=== PATIENT | male | born 1980 | race Caucasian/White ===

== ENCOUNTER 2017-08-22 09:37 | Emergency (ER) | payer SELFPAY ==
[~2017-08-22] VITALS: Ht 182.9 cm; Wt 59.9 kg
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
--- NOTE | 2017-08-22 10:48 | NUR ---
DR BACON AT BEDSIDE FOR EVAL
[2017-08-22 11:23] LABS: BASOPHILS # (AUTO) 0.1 /CMM (0.0-0.2); BASOPHILS % (AUTO) 0.9 % (0.0-2.0); EOSINOPHILS # (AUTO) 0.1 /CMM (0.0-0.7); EOSINOPHILS % (AUTO) 0.5 % (0.0-6.0); HEMATOCRIT 44 % (39-51); HEMOGLOBIN 14.6 g/dL (13.5-17.5); LYMPHOCYTES # (AUTO) 3.3 /CMM (0.8-4.8); LYMPHOCYTES % (AUTO) 28.3 % (20.0-44.0); MEAN CORPUSCULAR HEMOGLOBIN 31 PG (26.0-33.0); MEAN CORPUSCULAR HGB CONC 34 g/dl (31.0-36.0); MEAN CORPUSCULAR VOLUME 91 fL (80-96); MONOCYTES # (AUTO) 0.9 /CMM (0.1-1.30); MONOCYTES % (AUTO) 7.7 % (2.0-12.0); NEUTROPHILS # (AUTO) 7.2 /CMM (1.8-8.9); NEUTROPHILS % (AUTO) 62.6 % (43.0-81.0); PLATELET COUNT (AUTO) 263 /CMM (150-450); RDW COEFFICIENT OF VARIATION 12.6 (11.5-15.0); WHITE BLOOD COUNT (AUTO) 11.6 K/uL (4.3-11.0)
[2017-08-22 11:33] LABS: CALCIUM, SERUM 8.5 mg/dL (8.5-10.1); CARBON DIOXIDE 29 mmol/L (21-32); CHLORIDE 103 mmol/L (98-107); CREATININE 0.9 mg/dL (0.6-1.3); GLUCOSE 91 mg/dL (74-106); SODIUM SERUM 139 mmol/L (136-145); UREA NITROGEN, BLOOD 13 mg/dL (7-18)
[2017-08-22 11:36] LABS: INR 0.99 (0.87-1.13); PROTHROMBIN TIME 10.3 SECS (9.5-12.7)
[2017-08-22 11:39] LABS: ALANINE AMINOTRANSFERASE 19 U/L (12-78); ALBUMIN 4.1 g/dL (3.4-5.0); ALKALINE PHOSPHATASE 82 U/L (46-116); ASPARTATE AMINOTRANSFERASE 20 U/L (15-37); BILIRUBIN,DIRECT 0.2 mg/dL (0.0-0.2); BILIRUBIN,TOTAL 0.9 mg/dL (0.2-1.0); TOTAL PROTEIN, SERUM 6.9 g/dL (6.4-8.2)
--- NOTE | 2017-08-22 11:39 | NUR ---
EKG IN PROGRESS
[2017-08-22 11:41] LABS: TROPONIN I < 0.017 ng/mL (0.00-0.056)
[2017-08-22 13:40] VITALS: BP 129/60
--- NOTE | 2017-08-22 13:42 | NUR ---
Patient discharged to home in stable condition. Written and verbal after care instructions given. Patient verbalizes understanding of instruction.IV removed. Catheter intact and site benign. Pressure and 4x4 applied to site. No bleeding noted.Prescription given.
== END 2017-08-22 13:41 | disposition home or self-care (01) ==
LOC: ER 09:40
DX: M54.5 Low back pain (principal); M54.2 Cervicalgia; G89.29 Other chronic pain; R51 Headache; M19.90 Unspecified osteoarthritis, unspecified site; R79.1 Abnormal coagulation profile; R79.89 Other specified abnormal findings of blood chemistry; Z59.0 Homelessness; Z91.018 Allergy to other foods
CPT/HCPCS: 36415; 70450-TC; 71010-TC; 72074-TC; 72110-TC; 72125-TC; 73030-TC; 80048-TC; 80076-TC; 80305; 82962-TC; 84484-TC; 85025-TC; 85730-TC; A4606; J2270; J2405; J7030; Z7610

== ENCOUNTER 2020-01-20 07:21 | Emergency (ER) | payer SELFPAY ==
[~2020-01-20] VITALS: Ht 182.9 cm; Wt 58.5 kg
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
--- NOTE | 2020-01-20 07:49 | NUR ---
SEEN AND EXAMINED BY .
[2020-01-20] MEDS ORDERED: HYDROCODONE/APAP 5/325MG 1 EACH TABLET ONE (07:50)
[2020-01-20] MEDS ORDERED: IBUPROFEN 600 MG TABLET PO ONE ×2 (07:51→08:00)
[2020-01-20] MEDS ORDERED: CEPHALEXIN MONOHYDRATE 500 MG CAPSULE PO ONE ×2 (07:51→08:00)
[2020-01-20] MEDS ORDERED: SULFAMETH/TRIMETH 800/160 MG 1 UDTAB TABLET ONE (07:51)
--- NOTE | 2020-01-20 07:59 | NUR ---
GEOSCIENCES ASSOCIATE PROFESSOR AT BEDSIDE FOR XRAY.
[2020-01-20] MEDS ORDERED: HYDROCODONE/APAP 5/325MG 1 EACH TABLET PO ONE (08:00)
[2020-01-20] MEDS ORDERED: SULFAMETH/TRIMETH 800/160 MG 1 UDTAB TABLET PO ONE (08:00)
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
[2020-01-20 09:22] VITALS: BP 133/88
--- NOTE | 2020-01-20 09:22 | NUR ---
Patient given written and verbal discharge instructions. Patient verbalizes understanding of instructions. Patient is ambulatory with steady gait. Refuses offer of [facility]. Patient given list of available shelters in surrounding area.
== END 2020-01-20 09:23 | disposition home or self-care (01) ==
LOC: ER 07:21
DX: M71.122 Other infective bursitis, left elbow (principal); M19.90 Unspecified osteoarthritis, unspecified site; F17.200 Nicotine dependence, unspecified, uncomplicated; Z91.018 Allergy to other foods; Z59.0 Homelessness
CPT/HCPCS: 73080-TC

== ENCOUNTER 2024-07-13 14:04 | Emergency (ER) | payer OTHER ==
[~2024-07-13] VITALS: Ht 180.3 cm; Wt 68.0 kg
[2024-07-13 14:06] VITALS: BP 124/87; TEMP 98; O2SAT 99
[2024-07-14 15:04] LABS: HIV-1 p24 ANTIGEN NON REACTIVE (NONREACTIVE); HIV-1/2 ANTIBODY NON REACTIVE (NONREACTIVE)
[2024-07-15 02:06] LABS: HEPATITIS B SURFACE AB Non Reactive (.)
== END 2024-07-13 14:35 | disposition home or self-care (01) ==
LOC: ER 14:27
DX: T50.901A Poisoning by unspecified drugs, medicaments and biological substances, accidental (unintentional), initial encounter (principal); R45.1 Restlessness and agitation; Z53.21 Procedure and treatment not carried out due to patient leaving prior to being seen by health care provider; Y92.89 Other specified places as the place of occurrence of the external cause
CPT/HCPCS: 36415; 86706; 86803; 87806

== ENCOUNTER → 2025-01-01 | Emergency (ER) | payer OTHER ==
[~2025-01-01] VITALS: Ht 175.3 cm; Wt 74.8 kg
[~2025-01-01] MED LIST: TDAP [DIPH/PERTUSSIS/TET] 0.5 ML VIAL IM ONE
[2025-01-01] MEDS: TDAP [DIPH/PERTUSSIS/TET] 0.5 ML VIAL IM ONE (12:47)
[2025-01-01 12:54] LABS: BASOPHILS % (AUTO) 0.7 % (0.0-2.0); EOSINOPHILS % (AUTO) 0.9 % (0.0-6.0); HEMATOCRIT 45 % (39-51); HEMOGLOBIN 15.3 g/dL (13.5-17.5); LYMPHOCYTES # (AUTO) 1.7 K/uL (0.8-4.8); MEAN CORPUSCULAR HEMOGLOBIN 31 PG (26.0-33.0); MEAN CORPUSCULAR HGB CONC 34 g/dl (31.0-36.0); MEAN CORPUSCULAR VOLUME 91 fL (80-96); MONOCYTES # (AUTO) 0.5 K/uL (0.1-1.30); MONOCYTES % (AUTO) 9.5 % (2.0-12.0); NEUTROPHILS # (AUTO) 2.8 K/uL (1.8-8.9); NEUTROPHILS % (AUTO) 54.9 % (43.0-81.0); PLATELET COUNT (AUTO) 232 K/uL (150-450); RED BLOOD CELL COUNT(AUTO) 4.96 MIL/uL (4.5-6.0); RED CELL DISTRIBUTION WIDTH 13.8 % (11.5-15.0); WHITE BLOOD COUNT (AUTO) 5.1 K/uL (4.3-11.0)
[2025-01-01 13:34] LABS: ACETAMINOPHEN <10 ug/ml (10-30); ALANINE AMINOTRANSFERASE 20 U/L (12-78); ALCOHOL, BLOOD < 3 mg/dL (0-10); ALKALINE PHOSPHATASE 114 U/L (46-116); ASPARTATE AMINOTRANSFERASE 22 U/L (15-37); BILIRUBIN,DIRECT 0.1 mg/dL (0.0-0.2); BILIRUBIN,TOTAL 0.3 mg/dL (0.2-1.0); CALCIUM, SERUM 8.7 mg/dL (8.5-10.1); CARBON DIOXIDE 30 mmol/L (21-32); CHLORIDE 103 mmol/L (98-107); CREATININE 1.2 mg/dL (0.6-1.3); GLUCOSE 107 mg/dL (74-106); POTASSIUM 3.9 mmol/L (3.5-5.1); SALICYLATE 3.7 mg/dL (2.8-20.0); SODIUM SERUM 139 mmol/L (136-145); TOTAL PROTEIN, SERUM 7.5 g/dL (6.4-8.2); UREA NITROGEN, BLOOD 16 mg/dL (7-18)
[2025-01-01 14:00] VITALS: TEMP 98.1
[2025-01-01] MEDS: OLANZAPINE 10 MG VIAL IM ONE (14:00)
[2025-01-01] MEDS: diphenhydrAMINE HCL 50 MG/ML VIAL IM ONE (14:00)
[2025-01-01 15:43] LABS: APPEARANCE,URINE CLEAR (CLEAR); BILIRUBIN,URINE NEGATIVE (NEGATIVE); BLOOD, URINE NEGATIVE Ery/uL (NEGATIVE); COLOR,URINE YELLOW (YELLOW); KETONES,URINE NEGATIVE (NEGATIVE); LEUKOCYTE ESTERASE ,URINE NEGATIVE (NEGATIVE); NITRITE, URINE NEGATIVE (NEGATIVE); PROTEIN,URINE TRACE mg/dl (NEGATIVE); UGLUCOSE NEGATIVE (NEGATIVE)
[2025-01-01 15:53] VITALS: BP 141/91; O2SAT 98
[2025-01-01 15:58] LABS: BARBITURATE, URINE NEGATIVE (NEGATIVE); BENZODIAZEPINE, URINE NEGATIVE (NEGATIVE); COCCAINE, URINE NEGATIVE (NEGATIVE); OPIATE, URINE NEGATIVE (NEGATIVE); PHENCYCLIDINE SCREEN,URINE NEGATIVE (NEGATIVE)
[2025-01-01 16:00] LABS: AMPHETAMINE, URINE POSITIVE (NEGATIVE); CANNABINOID, URINE POSITIVE (NEGATIVE)
[2025-01-01 16:26] LABS: ADD URINE CULTURE NO; BACTERIA,URINE None seen /HPF (None Seen); RBC,URINE 0-2 /HPF (0-2); SQUAMOUS EPITHELIAL CELL,UR 0-2 /HPF (None Seen); WBC,URINE 0-2 /HPF (0-3)
== END | disposition left against medical advice (07) ==
LOC: ER 12:38
DX: S01.81XA Laceration without foreign body of other part of head, initial encounter (principal); R45.851 Suicidal ideations; F17.200 Nicotine dependence, unspecified, uncomplicated; Z59.00 Homelessness unspecified; Z91.030 Bee allergy status; Z20.822 Contact with and (suspected) exposure to COVID-19; X79.XXXA Intentional self-harm by blunt object, initial encounter; Y93.89 Activity, other specified; Y92.89 Other specified places as the place of occurrence of the external cause; Y99.8 Other external cause status
CPT/HCPCS: 36415; 80048-TC; 80076-TC; 81001; 85025-TC; 90715; G0480